=== PATIENT | male | born 1960 | race Caucasian/White ===

== ENCOUNTER → 2017-03-24 | Outpatient (CLI) | payer MEDICARE, MEDICAID ==
[~2017-03-24] MED LIST: BUPR300T3 PO; CLON0.5T PO; CLON0.5T3 PO; CYCL-331 PO; FENO54TA PO; GABA-585 PO; HYDR-971 PO; HYDR1TAB14 PO; PHEN37.598 PO; RISP4TAB35 PO; SIMV5TAB5 PO; TAMS0.4C2 PO; TAMS0.4C97 PO; TRAM50TA PO
--- NOTE | 2017-03-24 09:53 | RAD ---
Examination: CT chest without contrast History: History of lung cancer screening, history of smoking 2 packs a day for 50 years Comparison: 01/24/2016 Technique: Axial CT images of the chest were performed without contrast. Coronal and sagittal reformats were performed. PQRS Compliance Statement: One or more of the following individualized dose reduction techniques were utilized for this examination: 1. Automated exposure control 2. Adjustment of the mA and/or kV according to patient size 3. Use of iterative reconstruction technique Findings: The visualized thyroid gland grossly appears unremarkable. Central airways are patent. There is no radiologically significant mediastinal lymphadenopathy identified. Emphysematous changes identified in the bilateral lungs. Multiple small nodules identified in the right middle lobe, right upper lobe of the lung measuring 4 mm grossly similar to prior exam. Mild thickened appearance of the wall of the distal esophagus similar to prior exam. Coronary artery calcifications identified. The heart size grossly appears unremarkable. The visualized noncontrasted liver, spleen, adrenals grossly appears unremarkable. Impression: 1. Multiple tiny small 4 mm nodules identified in the right upper lobe, right middle lobe of the lungs grossly similar to prior exam. 2. Mild thickened appearance of the distal esophagus similar to prior exam. 3. Emphysematous changes again identified in the lungs.
== END | disposition home or self-care (01) ==
LOC: CT 09:03
PROVIDERS: ATTEND Internal Medicine Pulmonary Disease
DX: Z12.2 Encounter for screening for malignant neoplasm of respiratory organs (principal); C34.90 Malignant neoplasm of unspecified part of unspecified bronchus or lung; I25.10 Atherosclerotic heart disease of native coronary artery without angina pectoris; R91.8 Other nonspecific abnormal finding of lung field; Z87.891 Personal history of nicotine dependence
CPT/HCPCS: 71250

== ENCOUNTER → 2017-07-05 | Outpatient (CLI) | payer MEDICARE, MEDICAID ==
[~2017-07-05] MED LIST changes: +CONTRAST GIVEN MC PRN; +IOHEXOL 240 MG/ML 50ML VIAL. ONE; +IOHEXOL 300 MG/ML 75 ML VIAL. IV ONE
--- NOTE | 2017-07-05 15:19 | RAD ---
CT abdomen and pelvis with contrast 07/05/2017 Clinical indication: Prior hernia repair. Right upper quadrant abdominal pain. COMPARISON: CT abdomen 07/21/2013 TECHNIQUE: Multiple CT images of the abdomen and pelvis were obtained following the intravenous administration of 75 mL Omnipaque 300. *One or more of the following individualized dose reduction techniques were utilized for this examination: 1. Automated exposure control. 2. Adjustment of the mA and/or kV according to patient size. 3. Use of iterative reconstruction technique. FINDINGS: Heart size is normal without significant pericardial effusion. There is unchanged circumferential thickening of the visualized lower esophagus to the GE junction. Liver, spleen, adrenal glands and pancreas are unremarkable. Cholelithiasis in a nondilated gallbladder. There is stable mild thickening of the gallbladder fundus, likely due to adenomyomatosis. There is a 0.2 cm obstructive calculus in the superior pole of the right kidney. There are 2 stable right renal cysts. There are few additional bilateral renal hypodensities which are too small to definitively characterize, though statistically likely additional cysts. Abdominal aorta is normal in caliber with mild aortoiliac calcified atheromatous disease. No retroperitoneal or mesenteric lymphadenopathy. Small and large bowel loops are normal in caliber without obstruction. The appendix is normal in appearance. Prior ventral hernia with mesh without evidence of recurrent ventral hernia. No abdominal pelvic free fluid. Prostate and seminal vesicles and mildly distended and unopacified urinary bladder unremarkable. No iliac or inguinal lymphadenopathy. There are no destructive osseous lesions. IMPRESSION: 1. Cholelithiasis in a nondilated gallbladder. 2. Prior ventral hernia repair with mesh without evidence of recurrent hernia. 3. Tiny nonobstructive right renal calculus. 4. Lower esophageal circumferential mural thickening, may be due to reflux esophagitis. Clinical correlation is recommended. Electronically signed by: Damon Garcia MD (07/05/2017 3:16 PM) [id number]
== END | disposition home or self-care (01) ==
LOC: CT 13:50
PROVIDERS: ATTEND Physician Assistant
DX: K80.20 Calculus of gallbladder without cholecystitis without obstruction (principal); K43.9 Ventral hernia without obstruction or gangrene; N20.0 Calculus of kidney; N28.1 Cyst of kidney, acquired; I70.0 Atherosclerosis of aorta
CPT/HCPCS: 74177; Q9966; Q9967

== ENCOUNTER 2018-01-21 07:28 | Inpatient (IN) | payer MEDICARE, MEDICAID ==
[~2018-01-21] VITALS: Ht 182.9 cm; Wt 88.5 kg
[~2018-01-21 07:28] MED LIST changes: +CLON0.5T11 PO; -CLON0.5T3 PO; -CONTRAST GIVEN MC PRN; -IOHEXOL 240 MG/ML 50ML VIAL. ONE; -IOHEXOL 300 MG/ML 75 ML VIAL. IV ONE
[2018-01-21] MEDS ORDERED: ASPIRIN 81 MG TAB.CHEW PO ONE (07:45)
[2018-01-21] MEDS ORDERED: ONDANSETRON PF 4 MG/2 ML VIAL. IV ONE (07:45)
[2018-01-21] MEDS ORDERED: NITROGLYCERIN SUBLINGUAL 0.4 MG BOTTLE OF 25. SL PRN (07:45)
[2018-01-21 08:12] LABS: BARBITURATES NEG (NEG); BENZODIAZEPINES NEG (NEG); CANNABINOIDS NEG (NEG); COCAINE NEG (NEG); METHADONE NEG (NEG); OPIATES POS (NEG); PHENCYCLIDINE NEG (NEG)
[2018-01-21 08:14] LABS: AMPHETAMINE/METHAMPHETAMINE NEG (NEG)
--- NOTE | 2018-01-21 08:14 | RAD ---
Chest, 2 views, 01/21/2018: HISTORY: Epigastric and chest pain The heart size is normal. The lungs are clear. There is no evidence of pleural fluid. A surgical plate and screws is evident in the lower cervical spine. IMPRESSION: No acute cardiopulmonary abnormality is detected. Electronically signed by: Jase Gant MD (01/21/2018 8:10 AM) [facility]
[2018-01-21 08:24] LABS: ALBUMIN 3.6 g/dL (3.4-5.0); ALBUMIN/GLOBULIN RATIO 1.2 (1.0-1.7); CALCIUM 8.6 mg/dL (8.5-10.1); CREATININE 0.9 mg/dL (0.7-1.3); GFR 86.7; MAGNESIUM 1.7 mg/dL (1.8-2.4); POTASSIUM 4.2 mmol/L (3.5-5.1); TOTAL BILIRUBIN 0.5 mg/dL (0.2-1.0); TOTAL PROTEIN 6.6 g/dL (6.4-8.2)
[2018-01-21 08:34] LABS: BASO # 0.1 x10^3/uL (0.0-0.2); BASO % 1 % (0-3); EOS # 0.1 x10^3/uL (0.0-0.7); EOS % 2 % (0-3); HEMATOCRIT 44.6 % (39.0-53.0); HEMOGLOBIN 15.2 g/dL (13.0-17.5); LYMPH # 1.3 x10^3/uL (1.0-4.8); LYMPH % 22 % (24-48); MEAN CORPUSCULAR HEMOGLOBIN 31 pg (25-35); MEAN CORPUSCULAR HGB CONC 34 g/dL (31-37); MEAN CORPUSCULAR VOLUME 91 fL (79-100); MONO # 0.6 x10^3/uL (0.0-1.1); MONO % 9 % (0-9); NEUT % 66 % (31-73); PLATELET COUNT 159 x10^3/uL (140-400); RED CELL DISTRIBUTION WIDTH 14.1 % (11.5-14.5); WHITE BLOOD COUNT 6.1 x10^3/uL (4.0-11.0)
--- NOTE | 2018-01-21 08:38 | PHYS DOC ---
Past History Past Medical History: Bronchitis, Kidney Stones Past Surgical History: Cholecystectomy Additional Past Surgical Histo: Neck surgery Smoking: Cigarettes, Greater than 1 pack/day Additional Smoking Information: smokes about a pack a day Alcohol Use: Occasionally Drug Use: None Adult General Chief Complaint Chief Complaint: CHEST PAIN [facility] HPI Patient is a 57 year old male who presents with complaining of chest pain. Patient states he woke up around 0330 and denies that he had pressure pain in substernal area as a constant pain with shortness of breath, nausea, palpitation and dizziness. Patient said the pain was 8/10 and decreased after taking his home medication including ibuprofen and Dilaudid to 6/10 at arrival to ER. Patient states he had flu shot about 2 weeks ago and had flulike symptom that just got over recently. Patient denies history of cardiac problem, hypertension, dyslipidemia, diabetes or family history of coronary artery disease. Patient is a heavy smoker. Review of Systems Review of Systems Constitutional: Denies fever or chills [] Eyes: Denies change in visual acuity, redness, or eye pain [] HENT: Denies nasal congestion or sore throat [] Respiratory: Reports cough and shortness of breath Cardiovascular: No additional information not addressed in HPI [] GI: Denies abdominal pain, vomiting, bloody stools or diarrhea and reports nausea : Denies dysuria or hematuria [] Musculoskeletal: Denies back pain or joint pain [] Integument: Denies rash or skin lesions [] Neurologic: Denies headache, focal weakness or sensory changes [] Endocrine: Denies polyuria or polydipsia [] All other systems were reviewed and found to be within normal limits, except as documented in this note. Current Medications Current Medications Current Medications Medications (Trade) Dose Ordered Sig/[facility] Start Time Stop Time Status Last Admin Dose Admin Aspirin (Children'S Aspirin) 324 mg 1X ONCE 01/21/18 07:45 01/21/18 07:58 DC 01/21/18 08:11 324 MG Nitroglycerin (Nitrostat) 0.4 mg PRN Q5MIN PRN 01/21/18 07:45 01/22/18 07:44 01/21/18 08:12 0.4 MG Ondansetron HCl (Zofran) 4 mg 1X ONCE 01/21/18 07:45 01/21/18 07:58 DC 01/21/18 08:11 4 MG Allergies Allergies Allergies Coded Allergies Type Severity Reaction Last Updated Verified No Known Drug Allergies 06/22/13 No Physical Exam Physical Exam Constitutional: Well developed, well nourished, mild distress, non-toxic appearance. [] HENT: Normocephalic, atraumatic, oropharynx moist, no oral exudates, nose normal. [] Eyes: PERRLA, EOMI, conjunctiva normal, no discharge. [] Neck: Normal range of motion, no tenderness, supple, no stridor. [] Cardiovascular:Heart rate regular rhythm, no murmur [] Lungs & Thorax: Bilateral breath sounds clear to auscultation [] Abdomen: Bowel sounds normal, soft, no tenderness, no masses, no pulsatile masses. [] Skin: Warm, dry, no erythema, no rash. [] Back: No tenderness, no CVA tenderness. [] Extremities: No tenderness, no cyanosis, no clubbing, ROM intact, no edema. [] Neurologic: Alert and oriented X 3, normal motor function, normal sensory function, no focal deficits noted. [] Psychologic: Affect normal, judgement normal, mood normal. [] Current Patient Data Vital Signs Vital Signs Date Time Temp Pulse Resp B/P (MAP) Pulse Ox O2 Delivery O2 Flow Rate FiO2 01/21/18 08:12 55 123/75 01/21/18 07:28 98.4 18 95 Room Air Lab Results Laboratory Tests Test 01/21/18 07:45 Urine Opiates Screen Pos (NEG) Urine Methadone Screen Neg (NEG) Urine Barbiturates Neg (NEG) Urine Phencyclidine Screen Neg (NEG) Urine Amphetamine/Methamphetamine Neg (NEG) Urine Benzodiazepines Screen Neg (NEG) Urine Cocaine Screen Neg (NEG) Urine Cannabinoids Screen Neg (NEG) Urine Ethyl Alcohol Neg (NEG) EKG EKG EKG interpreted by me. EKG at 0 732 showed normal sinus rhythm at rate of 65, no acute distress and T-wave abnormalities Radiology/Procedures Radiology/Procedures [address] [address] IMAGING REPORT Signed PATIENT: EMILY LEZAMA ACCOUNT: [id number] : 1960 LOCATION: ER AGE: 57 SEX: M EXAM STATUS: REG ER ORD. PHYSICIAN: ANIYAH CULVER MD REASON: ches tpain PROCEDURE: CHEST PA & LATERAL Chest, 2 views, 01/21/2018: HISTORY: Epigastric and chest pain The heart size is normal. The lungs are clear. There is no evidence of pleural fluid. A surgical plate and screws is evident in the lower cervical spine. IMPRESSION: No acute cardiopulmonary abnormality is detected. Electronically signed by: Jase Sellers MD (01/21/2018 8:10 AM) [facility] DICTATED AND SIGNED BY: JASE SELLERS MD DATE: 01/21/18 0809 CC: SOFIA HORTON MD; ANIYAH CULVER MD ~ Course & Med Decision Making Course & Med Decision Making Pertinent Labs and Imaging studies reviewed. (See chart for details) evaluation of patient in ER showed 57-year-old male patient presented to ER because of chest pain with shortness of breath, dizziness, palpitation and nausea. Patient had unremarkable EKG and labs. Patient states his pain improved with nitroglycerin 1 from 5 to 2. Plan to admit patient to hospital for observation of chest pain. Dr. Horton accepted admission. Dragon Disclaimer Dragon Disclaimer This electronic medical record was generated, in whole or in part, using a voice recognition dictation system. Departure Departure: Impression: Primary Impression: Acute chest pain Additional Impressions: Hypomagnesemia Tobacco abuse Disposition: ADMITTED INPATIENT (At 0847) Admitting Physician: Sofia Horton (Accepted admission at 0846) Condition: IMPROVED Referrals: SOFIA HORTON MD (PCP) Problem Qualifiers ANIYAH CULVER MD Jan 21, 2018 08:38
[2018-01-21 10:04] VITALS: BP 106/69
[2018-01-21] MEDS ORDERED: GABA-586 PO (10:19)
[2018-01-21] MEDS ORDERED: IBUP400T18 PO (10:19)
[2018-01-21] MEDS ORDERED: HYDR4TAB45 PO (10:19)
[2018-01-21] MEDS ORDERED: BACL20TA PO (10:19)
--- NOTE | 2018-01-21 10:21 | EKG ---
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
[2018-01-21] MEDS ORDERED: IBUPROFEN 400 MG TABLET. PO PRN (13:15)
[2018-01-21] MEDS: HYDROmorphone 2 MG TABLET PO PRN (13:35)
[2018-01-21] MEDS: GABAPENTIN 300 MG CAPSULE. PO SCH ×2 (13:35→20:23)
[2018-01-21] MEDS ORDERED: GABAPENTIN 100 MG CAPSULE. PO SCH (14:00)
[2018-01-21 15:00] VITALS: BP 112/64
[2018-01-21 19:45] VITALS: BP 103/54
[2018-01-21] MEDS ORDERED: ATORVASTATIN CALCIUM 20 MG TABLET PO SCH (21:00)
[2018-01-21] MEDS ORDERED: clonazePAM 0.5 MG TABLET PO SCH ×2 (21:00)
[2018-01-21] MEDS ORDERED: traMADol 50 MG TABLET PO SCH (21:00)
[2018-01-22 00:15] VITALS: BP 112/67
[2018-01-22] MEDS: HYDROmorphone 2 MG TABLET PO PRN ×2 (00:22→08:15)
[2018-01-22 06:14] VITALS: BP 110/68
[2018-01-22 06:29] LABS: BASO # 0.1 x10^3/uL (0.0-0.2); BASO % 1 % (0-3); EOS # 0.2 x10^3/uL (0.0-0.7); EOS % 4 % (0-3); HEMATOCRIT 44.4 % (39.0-53.0); HEMOGLOBIN 14.9 g/dL (13.0-17.5); LYMPH % 37 % (24-48); MEAN CORPUSCULAR HEMOGLOBIN 31 pg (25-35); MEAN CORPUSCULAR HGB CONC 34 g/dL (31-37); MEAN CORPUSCULAR VOLUME 92 fL (79-100); MONO # 0.5 x10^3/uL (0.0-1.1); MONO % 9 % (0-9); NEUT # 2.6 x10^3uL (1.8-7.7); NEUT % 49 % (31-73); PLATELET COUNT 149 x10^3/uL (140-400); RED BLOOD COUNT 4.85 x10^6/uL (4.30-5.70); RED CELL DISTRIBUTION WIDTH 14.2 % (11.5-14.5); WHITE BLOOD COUNT 5.3 x10^3/uL (4.0-11.0)
[2018-01-22 06:48] LABS: CALCIUM 8.7 mg/dL (8.5-10.1); CREATININE 0.9 mg/dL (0.7-1.3); GFR 86.7; POTASSIUM 4.3 mmol/L (3.5-5.1)
[2018-01-22 07:36] VITALS: BP 108/66
[2018-01-22] MEDS: GABAPENTIN 300 MG CAPSULE. PO SCH (08:14)
[2018-01-22] MEDS ORDERED: CYCLOBENZAPRINE 10MG 4TABLET STARTPACK PO SCH (09:00)
[2018-01-22] MEDS ORDERED: TAMSULOSIN 0.4 MG CAP.ER.24H. PO SCH ×2 (09:00)
[2018-01-22] MEDS ORDERED: FENOFIBRATE NANOCRYSTALLIZED 48 MG TABLET PO SCH (09:00)
[2018-01-22] MEDS ORDERED: buPROPion XL 300 MG TAB.ER.24H. PO SCH (09:00)
[2018-01-22] MEDS ORDERED: risperiDONE 2 MG TABLET. PO SCH (09:00)
[2018-01-22] MEDS ORDERED: PANT40TA3 PO (10:08)
--- NOTE | 2018-01-22 17:38 | HP ---
ADMIT DATE: 01/22/2018 HISTORY OF PRESENT ILLNESS: A 57-year-old gentleman came in through the Emergency Room with increased chest pain. The patient noted he was doing relatively well until he woke up around 3:00 in the morning with problems of substernal chest pain that was radiating down his arms as well as increased pressure and breathing problems as well as nausea, palpitations, dizziness. Pain was 8/10. He had taken some home medications prior to his arrival. The patient also had a flu shot approximately 2 weeks ago, thought it might be related to that. The patient was admitted for rule out VT protocol, make further evaluation on him as indicated. PAST MEDICAL HISTORY: Bronchitis, kidney stones, cholecystectomy, hypertension, dyslipidemia, palpitations, adenoidectomy, tonsillectomy, hernia repair, fibromyalgia, degenerative disk disease, orthopedic surgery, multiple neck, back, shoulder problems with hardware. He is on disability, chronic anxiety. SOCIAL HISTORY: The patient tobacco abuse and use, but I encouraged to stop smoking. He has been to counseling. INFLUENZA VACCINE: Up-to-date. ALLERGIES: No known drug allergies. HOME MEDICATIONS: Include baclofen 1 t.i.d., ibuprofen 400, hydromorphone, Dilaudid, gabapentin, Protonix 40 mg daily. REVIEW OF SYSTEMS: Outside of his chest pain, shortness of breath, dyspnea, some nausea. The patient in turn made good progress on that regard. Denies any problem with bowels or bladder. PHYSICAL EXAMINATION: GENERAL: Pleasant white male, moderate amount of distress. VITAL SIGNS: Blood pressure 110/60, respirations 22, pulse 55, afebrile. HEENT: The patient's head was atraumatic, normocephalic. Eyes: PERRLA without jaundice. Mouth and throat were normal. NECK: Supple, without JVD, carotid bruits. No thyromegaly. LUNGS: The patient's lungs were diminished throughout, but clear. CARDIOVASCULAR: Regular sinus rhythm, S1, S2, without murmur, rub, thrill, or extra heart sounds. ABDOMEN: Soft, nontender, no rebound or guarding. Positive bowel sounds, no hepatosplenomegaly noted. EXTREMITIES: No clubbing, cyanosis or edema. NEUROLOGIC: Intact. LABORATORY DATA: Cardiac enzymes so far have been negative. IMPRESSION: Chest pain, rule out VT. PLAN: The patient will be admitted for observation and make further evaluation on him as indicated. SOFIA HORTON MD DR: BALDEMAR/stefano JOB#: [id number] / [id number]
== END 2018-01-22 10:39 | disposition home or self-care (01) | DRG 392 ==
LOC: ER 07:28 → 1 SOUTH 09:16 → ICU 15:00
PROVIDERS: ADMIT Family Medicine; ATTEND Family Medicine
DX: K21.9 Gastro-esophageal reflux disease without esophagitis (principal); F41.9 Anxiety disorder, unspecified; E78.5 Hyperlipidemia, unspecified; E83.42 Hypomagnesemia; F17.200 Nicotine dependence, unspecified, uncomplicated; I10 Essential (primary) hypertension; M79.7 Fibromyalgia; Z87.442 Personal history of urinary calculi; Z90.49 Acquired absence of other specified parts of digestive tract; Z79.899 Other long term (current) drug therapy; I25.10 Atherosclerotic heart disease of native coronary artery without angina pectoris
CPT/HCPCS: 36415; 71046; 80048; 80053; 80061; 80307; 82550; 83690; 83735; 83880; 84484; 85025; 85379; 85610; 85730; 93005; 96374; J2405; 99285-25; G0479

== ENCOUNTER → 2018-03-25 | Outpatient (CLI) | payer MEDICARE, MEDICAID ==
[~2018-03-25] MED LIST changes: +BACL20TA PO; +GABA-586 PO; +HYDR-3165 PO; -HYDR-971 PO; +HYDR4TAB45 PO; +IBUP400T18 PO; +PANT40TA3 PO
--- NOTE | 2018-03-25 13:38 | RAD ---
CT chest without contrast 03/25/2018 CLINICAL INDICATION: Pulmonary nodules, history of smoking for 60 pack-year, gland. COMPARISON: CT chest 03/24/2017, 01/24/2016. TECHNIQUE: Multiple CT images of the chest were obtained without contrast. *One or more of the following individualized dose reduction techniques were utilized for this examination: 1. Automated exposure control. 2. Adjustment of the mA and/or kV according to patient size. 3. Use of iterative reconstruction technique. FINDINGS: Heart size is normal thoracic of an pericardial effusion. The thoracic aorta is normal in caliber with trace calcified plaque. Valvular leaflet calcifications are noted. Coronary artery calcifications are noted. Mild symmetric gynecomastia. No axillary, mediastinal or obvious hilar lymphadenopathy. Moderate centrilobular pulmonary emphysema. No significant change in several bilateral sub-6 mm noncalcified pulmonary nodules. Anesthetic Assistant right lung pulmonary nodules measuring 0.2 cm series 2/image 162 in the right upper lobe, image 83 in the apical right upper lobe, 0.4 cm in the right middle lobe image 197, 0.3 cm in the right middle lobe image 215. Anesthetic Assistant left lung noncalcified pulmonary nodules are subpleural in the posterior left upper lobe image 192, 180, 151, 76. There is circumferential mild thickening of the mid and lower esophagus to the level of the GE junction. No new or enlarging noncalcified pulmonary nodules. No pleural effusion or pneumothorax. There are suture anchors in the right glenoid rim. Partial visualization of ACDF hardware. Limited images of the upper abdomen: Right nephrolithiasis. Cholecystectomy. IMPRESSION: 1. Stable bilateral sub-6 mm noncalcified pulmonary nodules since most remote examination 01/24/2016. 2. No new or enlarging noncalcified pulmonary nodules. 3. Aortic valvular leaflet and coronary artery calcifications. 4. Mid and lower esophageal mural thickening, may be due to reflux esophagitis. Clinical correlation is recommended. Electronically signed by: Damon Garcia MD (03/25/2018 1:34 PM) [id number]
== END | disposition home or self-care (01) ==
LOC: CT 08:02
PROVIDERS: ATTEND Internal Medicine Pulmonary Disease
DX: J43.2 Centrilobular emphysema (principal); R91.8 Other nonspecific abnormal finding of lung field; I25.10 Atherosclerotic heart disease of native coronary artery without angina pectoris; K22.8 Other specified diseases of esophagus; N62 Hypertrophy of breast; I70.0 Atherosclerosis of aorta
CPT/HCPCS: 71250

== ENCOUNTER → 2019-04-03 | Outpatient (CLI) | payer MEDICARE, MEDICAID ==
[~2019-04-03] MED LIST changes: -CLON0.5T11 PO; +CLON0.5T4 PO; -HYDR1TAB14 PO; +HYDR1TAB15 PO; +SIMV5TAB14 PO; -SIMV5TAB5 PO
--- NOTE | 2019-04-03 15:09 | RAD ---
CT CHEST WO CONTRAST Indication: Lung nodule Technique: Noncontrast CT imaging was performed of the chest, multiplanar reconstruction images submitted. One or more of the following individualized dose reduction techniques were utilized for this examination: 1. Automated exposure control 2. Adjustment of the mA and/or kV according to patient size 3. Use of iterative reconstruction technique. Comparison: March 25, 2018; 01/24/2016 Findings: There is again emphysema. There is no pleural or pericardial fluid, lobar consolidation, pneumothorax. There is aortic valvular leaflet calcification. There is some coronary calcification. No significantly enlarged nodes identified of the chest. Thoracic aortic caliber is within normal limits. There are likely cysts of the right kidney. There is small 0.2 cm right renal calculus. 0.2 cm right upper lobe nodule image 131 series 5 is similar. 0.3 cm right upper lobe nodule image 182 series 5 is stable. 0.3 cm right upper lobe nodule image 286 series 5 is stable. 0.5 cm right middle lobe nodule image 3:15 series 5 is stable. 0.4 cm right left middle lobe nodule image 344 is stable. A couple of small right lower lobe nodules about 0.2 cm each image 346 series 5 are stable. 0.3 cm left lower lobe nodule image 479 is stable as is a small 0.2 cm left lower lobe nodule image 495. 0.3 cm left lower lobe nodule image 424 is stable. 0.4 cm upper lobe nodule image 313 is stable. 0.2 cm left lower lobe nodule image 307 is stable. 0.3 cm left lower lobe nodule image 248 is stable. No new suspicious pulmonary nodularity is identified. There is no new significant chest lymphadenopathy. IMPRESSION: 1. Small bilateral pulmonary nodules are stable dating back to 2016 exam, no new suspicious pulmonary nodularity. 2. There is emphysema. 3. There is again aortic valvular calcification and coronary calcification. 4. There are right renal cysts, also small calcification. Electronically signed by: Sohail Geller MD (04/03/2019 3:06 PM) [id number]
== END | disposition home or self-care (01) ==
LOC: CT 11:33
PROVIDERS: ATTEND Internal Medicine Pulmonary Disease
DX: J43.9 Emphysema, unspecified (principal); R91.8 Other nonspecific abnormal finding of lung field; I70.0 Atherosclerosis of aorta; I25.10 Atherosclerotic heart disease of native coronary artery without angina pectoris; N28.1 Cyst of kidney, acquired; N20.0 Calculus of kidney
CPT/HCPCS: 71250

== ENCOUNTER → 2020-05-10 | Outpatient (CLI) | payer MEDICARE, MEDICAID ==
--- NOTE | 2020-05-11 10:46 | RAD ---
Exam performed: CT scan of the chest without contrast. Indication: Lung cancer Screening, patient is a smoker for 50 years. History of 3 packs per day, now One pack per week Date of Service: 05/10/2020.Comparison: Technique: Contiguous helical acquisitions are obtained through the chest without IV contrast. Sagit raul and coronal reformatted images are obtained and reviewed. CT chest findings: Structures at the thoracic inlet including both lobes of the thyroid gland appear normal. Lack of IV contrast limits evaluation of neck and intrathoracic great vessels, however they appear grossly dav l in course and caliber. Mild atheromatous aortic calcification is noted. No dominant mediastinal, hi lar or axillary lymphadenopathy seen. The central airway is patent. Interrogation of lungs demonstrates mild bilateral emphysematous changes. No focal infiltrates or nod ules. There is no pleural effusion or pneumothorax. Limited evaluation of the upper abdominal structures is unremarkable. Spondylotic changes. Impression CT chest: 1. Generalized emphysematous changes. No pulmonary nodules or masses seen. PQRS Compliance Statement: One or more of the following individualized dose reduction techniques were utilized for this examinat ion: 1. Automated exposure control 2. Adjustment of the mA and/or kV according to patient size 3. Use of iterative reconstruction technique Electronically signed by: Aminah Craig MD (05/11/2020 10:44 AM) [id number]
== END ==
LOC: CT 10:57
PROVIDERS: ATTEND Internal Medicine Pulmonary Disease
DX: Z12.2 Encounter for screening for malignant neoplasm of respiratory organs (principal); J43.9 Emphysema, unspecified; F17.200 Nicotine dependence, unspecified, uncomplicated
CPT/HCPCS: 71250

== ENCOUNTER 2021-08-22 09:01 | Emergency (ER) | payer MEDICARE, MEDICAID ==
[~2021-08-22] VITALS: Ht 182.9 cm; Wt 91.9 kg
[~2021-08-22 09:01] MED LIST changes: -CYCL-331 PO; +CYCL10TA19 PO
[2021-08-22] MEDS ORDERED: diphenhydrAMINE 50 MG/ML VIAL IVP ONE (09:45)
[2021-08-22] MEDS ORDERED: methylPREDNISolone SOD SUCC PF 125 MG/2 ML VIAL. IV ONE (09:45)
[2021-08-22] MEDS ORDERED: IOHEXOL 350 MG/ML 100 ML VIAL. ONE (09:51)
[2021-08-22] MEDS ORDERED: methylPREDNISolone SOD SUCC PF 125 MG/2 ML VIAL. ONE (09:53)
[2021-08-22] MEDS ORDERED: diphenhydrAMINE 50 MG/ML VIAL ONE (09:53)
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
[2021-08-22] MEDS ORDERED: IOHEXOL 350 MG/ML 100 ML VIAL. IV ONE (10:00)
[2021-08-22 10:23] LABS: BASO # 0.1 x10^3/uL (0.0-0.2); BASO % 1 % (0-3); EOS # 0.1 x10^3/uL (0.0-0.7); EOS % 3 % (0-3); HEMATOCRIT 45.7 % (39.0-53.0); HEMOGLOBIN 15.2 g/dL (13.0-17.5); LYMPH # 1.1 x10^3/uL (1.0-4.8); LYMPH % 18 % (24-48); MEAN CORPUSCULAR HEMOGLOBIN 31 pg (25-35); MEAN CORPUSCULAR HGB CONC 33 g/dL (31-37); MEAN CORPUSCULAR VOLUME 93 fL (79-100); MONO # 0.5 x10^3/uL (0.0-1.1); MONO % 9 % (0-9); NEUT # 4.1 x10^3uL (1.8-7.7); NEUT % 69 % (31-73); PLATELET COUNT 140 x10^3/uL (140-400); RED BLOOD COUNT 4.94 x10^6/uL (4.30-5.70); RED CELL DISTRIBUTION WIDTH 13.3 % (11.5-14.5); WHITE BLOOD COUNT 5.9 x10^3/uL (4.0-11.0)
[2021-08-22 10:33] LABS: CALCIUM 8.5 mg/dL (8.5-10.1); CREATININE 0.9 mg/dL (0.7-1.3); GFR 85.5; POTASSIUM 4.5 mmol/L (3.5-5.1)
[2021-08-22 10:39] LABS: ALBUMIN 3.4 g/dL (3.4-5.0); ALBUMIN/GLOBULIN RATIO 1.1 (1.0-1.7); TOTAL BILIRUBIN 0.7 mg/dL (0.2-1.0); TOTAL PROTEIN 6.5 g/dL (6.4-8.2)
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
[2021-08-22 12:05] VITALS: BP 106/71
== END 2021-08-22 12:30 | disposition home or self-care (01) ==
LOC: ER 09:01
DX: S13.9XXA Sprain of joints and ligaments of unspecified parts of neck, initial encounter (principal); S00.81XA Abrasion of other part of head, initial encounter; G89.29 Other chronic pain; F17.210 Nicotine dependence, cigarettes, uncomplicated; Y08.89XA Assault by other specified means, initial encounter; Y93.89 Activity, other specified; Y92.89 Other specified places as the place of occurrence of the external cause; Y99.8 Other external cause status
CPT/HCPCS: 36415; 70450; 70498; 72125; 80053; 85025; 96374; 96375; 99285; J1200; J2930; Q9967; 99284

== ENCOUNTER 2021-08-30 20:43 | Emergency (ER) | payer MEDICARE, MEDICAID ==
[~2021-08-30] VITALS: Ht 182.9 cm; Wt 91.9 kg
[2021-08-30] MEDS ORDERED: MUPIROCIN 2% TOPICAL OINTMENT 22GM TUBE. TP ONE (20:50)
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
[2021-08-30 22:23] LABS: BASO # 0.1 x10^3/uL (0.0-0.2); BASO % 1 % (0-3); EOS # 0.2 x10^3/uL (0.0-0.7); EOS % 3 % (0-3); HEMATOCRIT 44.7 % (39.0-53.0); HEMOGLOBIN 14.9 g/dL (13.0-17.5); LYMPH # 1.7 x10^3/uL (1.0-4.8); LYMPH % 25 % (24-48); MEAN CORPUSCULAR HEMOGLOBIN 31 pg (25-35); MEAN CORPUSCULAR HGB CONC 33 g/dL (31-37); MEAN CORPUSCULAR VOLUME 92 fL (79-100); MONO # 0.4 x10^3/uL (0.0-1.1); MONO % 6 % (0-9); NEUT # 4.2 x10^3uL (1.8-7.7); NEUT % 65 % (31-73); PLATELET COUNT 180 x10^3/uL (140-400); RED BLOOD COUNT 4.83 x10^6/uL (4.30-5.70); RED CELL DISTRIBUTION WIDTH 13.2 % (11.5-14.5); WHITE BLOOD COUNT 6.5 x10^3/uL (4.0-11.0)
[2021-08-30 22:28] LABS: CALCIUM 8.4 mg/dL (8.5-10.1); CREATININE 1.3 mg/dL (0.7-1.3); GFR 55.9; POTASSIUM 4.7 mmol/L (3.5-5.1)
[2021-08-30 22:33] LABS: ALBUMIN 3.5 g/dL (3.4-5.0); ALBUMIN/GLOBULIN RATIO 1.4 (1.0-1.7); TOTAL BILIRUBIN 0.6 mg/dL (0.2-1.0)
[2021-08-31 00:59] LABS: BACTERIA,URINE 0 /HPF (0-FEW); CLARITY,URINE CLEAR; COLOR,URINE YELLOW; GLUCOSE,URINE NEG (NEG); NITRITE,URINE NEG (NEG); RBC,URINE RARE /HPF (0-2); SQUAMOUS EPITHELIAL CELL,UR OCC /LPF; UROBILINOGEN,URINE 0.2 mg/dL (0.2 mg/dL); WBC,URINE OCC /HPF (0-4)
[2021-08-31 01:03] LABS: BARBITURATES NEG (NEG); BENZODIAZEPINES NEG (NEG); CANNABINOIDS POS (NEG); COCAINE NEG (NEG); METHADONE NEG (NEG); OPIATES POS (NEG); PHENCYCLIDINE NEG (NEG)
[2021-08-31 01:05] LABS: AMPHETAMINE/METHAMPHETAMINE NEG (NEG)
--- NOTE | 2021-08-31 01:34 | RAD ---
XR CHEST 1V 08/31/2021 1:11 AM INDICATION: Chest pain COMPARISON: 01/21/2018 TECHNIQUE: Portable frontal view of the chest is provided. FINDINGS: The cardiomediastinal silhouette is within normal limits. Lungs are clear. There are no significant pleural effusions. There is no pulmonary vascular congestion. No pneumothora x. No suspicious osseous abnormality. IMPRESSION: There is no acute cardiopulmonary process. Electronically signed by: Ariela Keyes MD (08/31/2021 1:32 AM) [facility]
[2021-08-31 03:00] VITALS: BP 106/64
== END 2021-08-31 03:08 | disposition home or self-care (01) ==
LOC: ER 20:43
DX: T59.811A Toxic effect of smoke, accidental (unintentional), initial encounter (principal); S20.212A Contusion of left front wall of thorax, initial encounter; F10.129 Alcohol abuse with intoxication, unspecified; G89.29 Other chronic pain; M19.90 Unspecified osteoarthritis, unspecified site; Z87.442 Personal history of urinary calculi; F17.210 Nicotine dependence, cigarettes, uncomplicated; Y90.7 Blood alcohol level of 200-239 mg/100 ml; X08.8XXA Exposure to other specified smoke, fire and flames, initial encounter; Y93.89 Activity, other specified; Y92.89 Other specified places as the place of occurrence of the external cause; Y99.8 Other external cause status
CPT/HCPCS: 36415; 71045; 80053; 80307; 81001; 84484; 85025; 93005; 99285; G0480